=== PATIENT | female | born 2000 | race Caucasian/White ===

== ENCOUNTER 2020-01-26 02:22 | Emergency (ER) | payer OTHER, SELFPAY ==
[~2020-01-26] VITALS: Ht 160 cm; Wt 64.1 kg
[2020-01-26] MEDS ORDERED: diphenhydrAMINE 50MG/ML VIAL (J1200) As Ordered ONE (02:29)
[2020-01-26] MEDS ORDERED: diphenhydrAMINE 50MG/ML VIAL (J1200) IM ONE (02:30)
[2020-01-26] MEDS ORDERED: LORazepam 2 MG/ML VIAL As Ordered ONE (02:30)
[2020-01-26] MEDS ORDERED: HALOPERIDOL 5MG/ML VIAL (J1630 PER 1) IM ONE (02:30)
[2020-01-26] MEDS ORDERED: LORazepam 2 MG/ML VIAL IM ONE (02:30)
[2020-01-26 03:01] LABS: HEMATOCRIT 41.8 % (36.0-47.0); HEMOGLOBIN 13.7 g/dl (12.0-15.5); MEAN CORPUSCULAR HEMOGLOBIN 30.5 pg (27.0-33.0); MEAN CORPUSCULAR HGB CONC 32.8 g/dl (32.0-36.5); MEAN CORPUSCULAR VOLUME 93.1 fl (80.0-96.0); PLATELET COUNT, AUTOMATED 321 10^3/uL (150-450); RED BLOOD COUNT 4.49 10^6/uL (4.00-5.40); WHITE BLOOD COUNT 9.3 10^3/uL (4.0-10.0)
[2020-01-26 03:08] LABS: HCG, SERUM QUALITATIVE NEGATIVE (NEGATIVE)
[2020-01-26 03:25] LABS: AMPHETAMINES LEVEL URINE NEGATIVE (NEGATIVE); BARBITURATES URINE NEGATIVE (NEGATIVE); BENZODIAZEPINES URINE NEGATIVE (NEGATIVE); CANNABINOIDS URINE NEGATIVE (NEGATIVE); COCAINE METABOLITE URINE NEGATIVE (NEGATIVE); METHADONE URINE NEGATIVE (NEGATIVE); OPIATES URINE NEGATIVE (NEGATIVE); PHENCYCLIDINE URINE NEGATIVE (NEGATIVE)
[2020-01-26 03:41] LABS: ACETAMINOPHEN LEVEL < 2.0 UG/ML (10.0-30.0); ALBUMIN 4.2 GM/DL (3.2-5.2); ALT/SGPT 23 U/L (12-78); BILIRUBIN,DIRECT < 0.1 MG/DL (0.0-0.2); BILIRUBIN,TOTAL 0.2 MG/DL (0.2-1.0); BLOOD UREA NITROGEN 7 MG/DL (7-18); CALCIUM LEVEL 8.5 MG/DL (8.5-10.1); CARBON DIOXIDE LEVEL 24 MEQ/L (21-32); CHLORIDE LEVEL 112 MEQ/L (98-107); CREATININE FOR GFR 0.56 MG/DL (0.55-1.30); ETHYL ALCOHOL (ETHANOL) 0.276 % (0.000-0.010); GLUCOSE, FASTING 101 MG/DL (70-100); POTASSIUM SERUM 3.8 MEQ/L (3.5-5.1); SALICYLATE LEVEL 2.2 MG/DL (5.0-30.0); SODIUM LEVEL 142 MEQ/L (136-145)
[2020-01-26 11:00] VITALS: BP 125/57
== END 2020-01-26 13:43 | disposition home or self-care (01) ==
LOC: M ED 02:22
DX: F10.120 Alcohol abuse with intoxication, uncomplicated (principal); F31.9 Bipolar disorder, unspecified; F17.210 Nicotine dependence, cigarettes, uncomplicated
CPT/HCPCS: 36415; 80048; 80076; 80307; 84443; 84703; 85027; 96372; 99284; G0480